=== PATIENT | male | born 2000 | race Two or more races ===

== ENCOUNTER 2021-12-03 22:19 | Inpatient (IN) | payer SELFPAY ==
[~2021-12-03] VITALS: Ht 177.8 cm; Wt 64.8 kg
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
[2021-12-04] VITALS (18 sets, daily range): BP systolic 97–145; BP diastolic 51–87
[2021-12-04 00:07] LABS: BASO % 0 % (0-3); EOS % 0 % (0-3); HEMATOCRIT 47.1 % (39.0-53.0); HEMOGLOBIN 15.5 g/dL (13.0-17.5); LYMPH # 1.7 x10^3/uL (1.0-4.8); LYMPH % 8 % (24-48); MEAN CORPUSCULAR HEMOGLOBIN 28 pg (25-35); MEAN CORPUSCULAR HGB CONC 33 g/dL (31-37); MEAN CORPUSCULAR VOLUME 86 fL (79-100); MONO # 1.2 x10^3/uL (0.0-1.1); MONO % 6 % (0-9); NEUT # 17.7 x10^3/uL (1.8-7.7); NEUT % 86 % (31-73); PLATELET COUNT 298 x10^3/uL (140-400); RED BLOOD COUNT 5.51 x10^6/uL (4.30-5.70); RED CELL DISTRIBUTION WIDTH 13.3 % (11.5-14.5); WHITE BLOOD COUNT 20.7 x10^3/uL (4.0-11.0)
[2021-12-04 00:15] LABS: GFR 92.6; POTASSIUM 3.6 mmol/L (3.5-5.1)
[2021-12-04 00:18] LABS: PROTHROMBIN TIME PATIENT 13.4 SEC (11.7-14.0)
[2021-12-04 00:21] LABS: ALBUMIN/GLOBULIN RATIO 1.6 (1.0-1.7); TOTAL BILIRUBIN 0.8 mg/dL (0.2-1.0); TOTAL PROTEIN 8.1 g/dL (6.4-8.2)
[2021-12-04] MEDS ORDERED: ONDANSETRON PF 4 MG/2 ML VIAL. IVP PRN (01:00)
[2021-12-04] MEDS ORDERED: ACETAMINOPHEN 325 MG TABLET. PO PRN (01:00)
[2021-12-04 01:04] LABS: % BANDS 6 % (0-9); % BASOS 1 % (0-3); % LYMPHS 9 % (24-48); % MONOS 4 % (0-10); % SEGS 80 % (35-66); PLT ESTIMATE ADEQUATE (ADEQUATE); TOXIC GRANULATION SLIGHT
--- NOTE | 2021-12-04 01:30 | NUR ---
Patient admitted to room 114, patient walked to bed, ICU monitors placed. Patient is AOX4, no complaints at this time. Call light within reach, ice bag given for swollen left eye.
[2021-12-04] MEDS ORDERED: NICOTINE 21MG PATCH. TD PRN (02:00)
--- NOTE | 2021-12-04 10:03 | NUR ---
SS following for discharge planning. SS reviewed pt chart and discussed with pt RN. Pt is from home and is currently on room air. Neurosurgery consulted. Self pay. Med Assist following. SS will continue to follow for discharge planning.
[2021-12-04] MEDS ORDERED: AMOX1TAB58 PO (11:09)
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
[2021-12-04] MEDS ORDERED: cefTRIAXone IV Push 1 GM VIAL. IVP SCH (12:00)
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
== END 2021-12-04 15:15 | disposition home or self-care (01) | DRG 87 ==
LOC: ER 22:19 → 1 WEST ICU 12-04 00:02
PROVIDERS: ADMIT Internal Medicine; ATTEND Internal Medicine
DX: S06.6X1A Traumatic subarachnoid hemorrhage with loss of consciousness of 30 minutes or less, initial encounter (principal); X58.XXXA Exposure to other specified factors, initial encounter; F17.200 Nicotine dependence, unspecified, uncomplicated; S00.10XA Contusion of unspecified eyelid and periocular area, initial encounter; Y93.89 Activity, other specified; Y92.89 Other specified places as the place of occurrence of the external cause; Y99.8 Other external cause status; Z82.49 Family history of ischemic heart disease and other diseases of the circulatory system; Y08.89XA Assault by other specified means, initial encounter
CPT/HCPCS: 36415; 70450; 70486; 72125; 80053; 85007; 85025; 85610; 85730; 96374; G0480; J0696; J2060; J2405; 99285-25; G0378